=== PATIENT | male | born 1985 | race Caucasian/White ===

== ENCOUNTER 2019-08-22 03:35 | Emergency (ER) | payer MEDICAID ==
[~2019-08-22] VITALS: Ht 177.8 cm; Wt 159.1 kg
[~2019-08-22 03:35] MED LIST: CLOT15CR73 TP
[2019-08-22] MEDS ORDERED: AMOX-100 PO (03:58)
[2019-08-22] MEDS ORDERED: HYDR-3965 PO (03:58)
[2019-08-22 04:03] VITALS: BP 176/104
[2019-08-22] MEDS ORDERED: HYDROcodone/acetaminophen 5mg/325mg tablet PO ONE (04:05)
== END 2019-08-22 04:14 | disposition home or self-care (01) ==
LOC: ER 03:36
DX: K08.89 Other specified disorders of teeth and supporting structures (principal); R11.0 Nausea; Z79.899 Other long term (current) drug therapy
CPT/HCPCS: 99283

== ENCOUNTER 2023-11-09 09:43 | Emergency (ER) | payer MEDICAID ==
[~2023-11-09] VITALS: Ht 177.8 cm; Wt 158.4 kg
[2023-11-09] MEDS ORDERED: LEVO-65 PO (11:55)
[2023-11-09] MEDS: levoFLOXACIN 250mg tablet PO ONE (12:00)
[2023-11-09 12:05] VITALS: BP 174/100; PULSE 83; RESP 16; TEMP 97.7; O2SAT 97
== END 2023-11-09 12:06 | disposition home or self-care (01) ==
LOC: ER 09:44
DX: N45.1 Epididymitis (principal); I10 Essential (primary) hypertension; E11.9 Type 2 diabetes mellitus without complications; Z79.899 Other long term (current) drug therapy
CPT/HCPCS: 76870; 93976; 99284

== ENCOUNTER 2025-03-31 13:24 | Emergency (ER) | payer BC, OTHER ==
[~2025-03-31] VITALS: Ht 180.3 cm; Wt 153.1 kg
--- NOTE | 2025-03-31 15:01 | ELECTROCARDIOGRAPH REPORT ---
[facility] Test Date: 2025-03-31 Test Time: 15:00:40 Pat Name: CEZAR SOSA Department: [facility]-ER Patient ID: [id number] Room: Gender: M Critical Care Registered Nurse: : [id number] Requested By: NAVEED GARCIA Order Number: [id number] Reading MD: Measurements Intervals [place] Rate: 66 P: 59 VT: 173 QRS: 64 QRSD: 88 T: 57 QT: 444 QTc: 466 Interpretive Statements Sinus rhythm Probable anteroseptal infarct, recent Baseline wander in lead(s) V1,V2 Please click the below link to view image of tracing.
--- NOTE | 2025-03-31 15:29 | Physician Documentation ---
History of Present Illness ~ Chief Complaint: Hypertension Stated Complaint: HIGH BLOOD PRESSURE Time Seen by MD: 14:28 Primary Medical Doctor: constantin monge Mode of Arrival: POV HPI 39 year old male came to the ER with concerns of hypertension, since yesterday morning he is c/o headache diffuse, gradual in onset, a/w nausea, but no vomitings or neck stiffness, denies visual disturbances. He had htn for the past 2 yeats, taking lisinopril 40 mg once daily, and since yesterday the BPs at home running 230/140, and the high blood pressures are persistent today, he came to the ER today. he denies chest pain, sob, cough, hematuria, weakness of legs denies h/o CKD, JOSELYN he does have T2DM for which he is taking metformin Medication Reconciliation Allergies: Coded Allergies: No Known Allergies (Unverified , 11/09/23) Scheduled Amlodipine Besylate (Amlodipine Besylate), 1 TAB PO DAILY Clotrimazole/Betamet Diprop Cream* (Lotrisone Cream*), 1 APPLIC TP BID Olmesartan/Hydrochlorothiazide (Olmesartan-Hctz 40-12.5 mg Tab), 1 TAB PO DAILY Past Medical History Past Medical History: Hypertension, Diabetes Past Surgical History: no surgical history Smoking Status: Never smoker Alcohol Use: None Drug Use: none Lives In: Home Occupation: employed Review of Systems All Other Systems at this time: Reviewed and Negative Physical Exam Vital Signs: Temperature: 97.8, Source: Temporal, Heart Rate: 89, Respiratory R ate: 17, BP: 232/147, Pulse Oximetry: 98, Weight: 153.100 General Appearance: alert, no apparent distress Pupils/EOM/Fundus: PERRLA Respiratory: lungs clear, normal breath sounds, no respiratory distress Chest: no accessory muscle use Cardiovascular: regular rate, rhythm, no edema Cardiovascular S1, S2 heard Gastrointestinal: normal palpation, non-tender, bowels sounds present Orientation / Memory / CN Exam: oriented x3 Motor / Sensory: no motor deficit, no sensory deficit Progress Progress Note BPs spikes upto 200/100 mm hg, will give 10 mg amlodipine and 200 mg labetalol po Results/Orders Results/Orders Vital Signs 03/31/25 03/31/25 03/31/25 03/31/25 13:49 15:09 15:59 16:03 Temp 97.8 Pulse 89 71 73 76 Resp 17 12 16 B/P (MAP) 232/147 155/89 (111) 216/127 (156) Pulse Ox 98 95 98 O2 Flow Rate 0 0 03/31/25 16:16 Temp 98.0 Pulse 71 Resp 18 B/P (MAP) 213/120 Pulse Ox 98 Laboratory Tests Test 03/31/25 15:20 03/31/25 15:53 White Blood Count 13.8 H Red Blood Count 5.82 Hemoglobin 15.7 Hematocrit 45.6 Mean Corpuscular Volume 78.3 Mean Corpuscular Hemoglobin 27.0 Mean Corpuscular Hemoglobin Concent 34.5 Red Cell Distribution Width 13.6 Platelet Count 223 Mean Platelet Volume 11.2 H Neutrophils (%) (Auto) 84.4 H Lymphocytes (%) (Auto) 10.7 L Monocytes (%) (Auto) 4.2 Eosinophils (%) (Auto) 0.5 Basophils (%) (Auto) 0.2 Neutrophils # (Auto) 11.6 H Lymphocytes # (Auto) 1.5 Monocytes # (Auto) 0.6 Eosinophils # (Auto) 0.1 Basophils # (Auto) 0.0 CBC Comment Sodium Level 138 Potassium Level 4.1 Chloride Level 102 Carbon Dioxide Level 30.9 Anion Gap 5 L Blood Urea Nitrogen 10 Creatinine 0.69 Estimated GFR/1.73 m2 > 90 BUN/Creatinine Ratio 14.5 Glucose Level 296 H Calcium Level 8.6 Total Bilirubin 0.5 Aspartate Amino Transf (AST/SGOT) 14 Alanine Aminotransferase (ALT/SGPT) 29 Alkaline Phosphatase 83 Troponin I High Sensitivity 10 Total Protein 7.8 Albumin 3.4 Globulin 4.4 H Albumin/Globulin Ratio 0.8 L Chemistry Comments Urine Specimen Description Urinal Urine Color Yellow Urine Clarity Clear Urine pH 6.5 Urine Specific [place] 1.025 Urine Protein 30 H Urine Glucose (UA) 500 H Urine Ketones 40 H Urine Occult Blood Negative Urine Nitrite Negative Urine Bilirubin Negative Urine Urobilinogen 0.2 Urine Leukocyte Esterase Negative Urine RBC 0-2 Urine WBC 0-4 Urine Squamous Epithelial Cells Few Urine Bacteria None seen Urine Mucus Few Volume Urine Centrifuged 10 ml Urine Comment Medical Decision Making Additional information obtaine: old records Findings 39 year old male came to the ER with concerns of hypertension, since yesterday morning he is c/o headache diffuse, gradual in onset, a/w nausea, but no vomitings or neck stiffness, denies visual disturbances. He had htn for the past 2 yeats, taking lisinopril 40 mg once daily, and since yesterday the BPs at home running 230/140, and the high blood pressures are persistent today, he came to the ER today. he denies chest pain, sob, cough, hematuria, weakness of legs denies h/o CKD, JOSELYN, hypothyroidism he does have T2DM for which he is taking metformin BP currently here is 155/89 mm hg will do cbc, cmp, trop, UA, ekg to look for end organ damage will give labetalol 100 mg po once EKG- sinus ryhtm, HR of 66 cmp- no CYNDI, and cbc- mild leukocytosis Differential Dx:Considerations: Include HTN, accelerated Departure Time of Disposition: 16:10 Disposition: 01 HOME / SELF CARE / HOMELESS Impression: Primary Impression: Hypertensive urgency Condition: Improved Discharge Instructions: DASH Eating Plan, Hypertension, Adult Additional Instructions: We prescribed you olmesartan/hctz and amlodipine daily take both of the meds daily recommended to measure BPs at home recommended to follow up with PCP in a week and get a work up for secondary causes of hypertension for sleep apnea return to the ER in case of chest pain, uncontrolled BP recommended DASH diet and avoid alcohol Referrals: NO PRIMARY CARE PROVIDER (PCP) Prescriptions Amlodipine Besylate (Amlodipine Besylate) 5 Mg Tablet 1 TAB PO DAILY for 30 Days, #30 TAB 0 Refills Prov: NAVEED GARCIA, HUMBERTO 03/31/25 Olmesartan/Hydrochlorothiazide (Olmesartan-Hctz 40-12.5 mg Tab) 40 Mg-12.5 Mg Tablet 1 TAB PO DAILY for 30 Days, #30 TAB 0 Refills Prov: NAVEED GARCIA, HUMBERTO 03/31/25 Education Educated: Patient Educated regarding: diagnosis, treatment, prognosis, need for follow up Additional Comment Seen with PA/ASSISTANT INVENTORY MANAGER The patient was seen with the resident physician and the residence note has been reviewed by myself and I agree with the note and the assessment plan as written. The patient was examined by myself. And I have supervised all aspects of the patients care Signature Scribe Signature: , Attestation: findings, assessment, plan and dispo d/w NAVEED Amezquita MD, RES Mar 31, 2025 15:29 OHLFS,LIZA Baig MD Apr 01, 2025 16:10
[2025-03-31 15:33] LABS: MEAN PLATELET VOLUME 11.2 FL (7.4-10.4); RED CELL DISTRIBUTION WIDTH 13.6 % (11.5-14.5)
[2025-03-31 15:51] LABS: CREATININE 0.69 MG/DL (0.60-1.10); TOTAL CARBON DIOXIDE 30.9 MMOL/L (24-32); eCRCL 152 ML/MIN; eGFR > 90 ML/MIN
[2025-03-31] MEDS ORDERED: OLME-30 PO (15:57)
[2025-03-31] MEDS ORDERED: AMLO5TAB16 PO (15:57)
[2025-03-31 16:16] VITALS: BP 213/120; PULSE 71; RESP 18; TEMP 98; O2SAT 98
[2025-03-31 16:21] LABS: LEUKOCYTE ESTERASE ,URINE NEGATIVE (Neg); NITRITES, URINE NEGATIVE (Neg); OCCULT BLOOD,URINE NEGATIVE (Neg)
[2025-03-31 16:23] LABS: UA COLLECTION TYPE URINAL
[2025-03-31 16:27] LABS: MUCUS STRANDS FEW /LPF (Neg); SQUAMOUS EPITHELIAL CELL,UR FEW /LPF (FEW)
== END 2025-03-31 16:17 | disposition home or self-care (01) ==
LOC: ER 13:24
DX: I16.0 Hypertensive urgency (principal); I10 Essential (primary) hypertension; E11.9 Type 2 diabetes mellitus without complications; Z79.899 Other long term (current) drug therapy
CPT/HCPCS: 80053; 81001; 84484; 85025; 93005; 99284